=== PATIENT | female | born 1985 | race Caucasian/White ===

== ENCOUNTER 2022-03-31 11:32 | Emergency (ER) | payer SELFPAY ==
[~2022-03-31] VITALS: Ht 152.4 cm; Wt 56.7 kg
[2022-03-31 11:38] VITALS: BP 115/70
--- NOTE | 2022-03-31 12:22 | NUR ---
PATIENT LEFT WITHOUT BEING SEEN BY DR. CERNA. NO FURTHER CARE PROVIDED FOR PATIENT. 1291 2ND CALL N/A 1259 3DR CALL N/A
== END 2022-03-31 12:22 | disposition left against medical advice (07) ==
LOC: MED 11:32
DX: R53.1 Weakness (principal); M79.10 Myalgia, unspecified site; R10.9 Unspecified abdominal pain; Z53.21 Procedure and treatment not carried out due to patient leaving prior to being seen by health care provider